=== PATIENT | male | born 1950 | race Caucasian/White ===

== ENCOUNTER 2020-04-30 19:50 | Emergency (ER) | payer OTHER ==
[2020-04-30] MEDS ORDERED: methylPREDNISolone Sodium Succinate 125 MG/2 ML SDV IVPUSH ONE (20:09)
[2020-04-30] MEDS ORDERED: diphenhydrAMINE 50 MG/ML SDV IVPUSH ONE (20:09)
[2020-04-30] MEDS ORDERED: EPINEPHrine 1 MG/ML SDV SUBCUT ONE (20:09)
--- NOTE | 2020-04-30 20:12 | EDM.PDOC ---
ED HPI GENERAL MEDICAL PROBLEM - General Chief Complaint: Allergic Reaction Stated Complaint: WASP STING Time Seen by Provider: 04/30/20 19:50 Source of Information: Reports: Patient, Family History Limitations: Reports: No Limitations - History of Present Illness INITIAL COMMENTS - FREE TEXT/NARRATIVE: 70-year-old male arrives in acute discomfort after a wasp sting on his left face 20 minutes before arrival. Within 10 to 20 minutes he developed widespread rash, redness, shortness of breath, chest pressure, and general malaise. He has not had past reactions to stings. No nausea or vomiting, he is acutely diaphoretic and weak. Onset: Sudden Duration: Minutes: (Stung 20 minutes ago, symptoms were fairly rapid onset) Associated Symptoms: Reports: Chest Pain, Diaphoresis, Malaise, Rash (Widespread blanching hive-like rash on his chest abdomen and extremities), Weakness. Denies: Confusion, Fever/Chills, Headaches, Nausea/Vomiting, Shortness of Breath chest pain Pain Score (Numeric/FACES): 8 - Related Data Allergies Allergy/AdvReac Type Severity Reaction Status Date / Time No Known Allergies Allergy Verified 04/30/20 20:01 Home Meds: Home Meds Aspirin 325 mg PO DAILY 04/30/20 [History] Cholecalciferol (Vitamin D3) [Vitamin D3] 1,000 unit PO BID 04/30/20 [History] Cyanocobalamin (Vitamin B-12) [B-12] 1,000 mcg PO DAILY 04/30/20 [History] Finasteride [Proscar] 5 mg PO DAILY 04/30/20 [History] Fish Oil/Baker-3 Fatty Acids [Fish Oil 1,000 MG] 1 cap PO BID 04/30/20 [History] Simvastatin [Zocor] 20 mg PO BEDTIME 04/30/20 [History] amLODIPine Besylate [Amlodipine Besylate] 2.5 mg PO DAILY 04/30/20 [History] atenoloL [Atenolol] 25 mg PO DAILY 04/30/20 [History] lisinopriL [Lisinopril] 5 mg PO DAILY 04/30/20 [History] ED ROS ALLERGIC REACTION - Review of Systems Review Of Systems: See Below Constitutional: Reports: Malaise. Denies: Fever, Chills HEENT: Reports: Other (Significant periorbital edema and facial edema, redness). Denies: Vision Change Respiratory: Denies: Wheezing Cardiovascular: Reports: Chest Pain (Pressure in his substernal chest) GI/Abdominal: Denies: Abdominal Pain, Nausea, Vomiting Musculoskeletal: Denies: Neck Pain, Back Pain Skin: Reports: Rash, Erythema, Urticaria Neurological: Reports: Dizziness, Weakness. Denies: Trouble Speaking, Difficulty Walking Psychiatric: Reports: No Symptoms ED EXAM GENERAL NO PERIP PULSE - Physical Exam Exam: See Below Exam Limited By: No Limitations General Appearance: Alert, Moderate Distress (Patient is acutely stressed with a systemic reaction to a wasp sting, and appears to be entering into an cristhian phylactic state) Eye Exam: Bilateral Eye: EOMI, Periorbital Changes (Patient is periorbital edema of his eyes and face), Other (Conjunctival erythema) Throat/Mouth: Other (No significant mucosal or pharyngeal airway swelling or edema) Head: Atraumatic Neck: Supple, Non-Tender Respiratory/Chest: No Respiratory Distress, Lungs Clear Cardiovascular: Regular Rate, Rhythm, Extra Beats GI/Abdominal: Soft, Non-Tender Extremities: No: Pedal Edema Neurological: Alert, Oriented Psychiatric: Anxious Skin Exam: Diaphoretic, Rash (Widespread blanching hive-like urticarial rash) Course - Vital Signs Last Recorded V/S: Last Vital Signs Temp 97.0 F 04/30/20 20:55 Pulse 82 04/30/20 20:55 Resp 15 04/30/20 20:55 BP 147/74 H 04/30/20 20:55 Pulse Ox 96 04/30/20 20:55 - Orders/Labs/Meds Orders: Active Orders 24 hr Category Date Time Status EKG Documentation Completion [RC] ASDIRECTED Care 04/30/20 20:10 Active RT Aerosol Therapy [RC] ASDIRECTED Care 04/30/20 20:21 Active Chest 1V Frontal [CR] Stat Exams 04/30/20 20:09 Taken EKG 12 Lead [EK] Stat Ther 04/30/20 20:09 Ordered Meds: Medications Discontinued Medications Generic Name Dose Route Start Last Admin Trade Name Freq PRN Reason Stop Dose Admin Albuterol/Ipratropium 3 ml 04/30/20 20:21 04/30/20 20:34 Duoneb 3.0-0.5 Mg/3 Ml NEB 04/30/20 20:22 3 ml ONETIME ONE Administration Diphenhydramine HCl 50 mg 04/30/20 20:09 04/30/20 20:40 Benadryl IVPUSH 04/30/20 20:10 50 mg ONETIME ONE Administration Diphtheria/Tetanus/Acell Pertussis 0.5 ml 04/30/20 20:29 04/30/20 20:39 Adacel IM 04/30/20 20:30 Not Given .ONCE ONE Epinephrine HCl 0.4 mg 04/30/20 20:09 04/30/20 20:39 Adrenalin SUBCUT 04/30/20 20:10 0.4 mg ONETIME ONE Administration Sodium Chloride 1,000 mls @ 1,000 mls/hr 04/30/20 20:15 04/30/20 20:33 Normal Saline IV 1,000 mls/hr ASDIRECTED DIMITRI Administration Methylprednisolone Sodium Succinate 125 mg 04/30/20 20:09 04/30/20 20:42 Solu-Medrol IVPUSH 04/30/20 20:10 125 mg ONETIME ONE Administration - Re-Assessments/Exams Free Text/Narrative Re-Assessment/Exam: 04/30/20 20:28 An IV was urgently started and the patient was given 0.4 mg of subcutaneous epinephrine. When the IV was placed he was given 50 mg of IV Benadryl, 125 mg of Solu-Medrol, and 1 L of normal saline. An EKG was done which showed no acute findings. Within 15 minutes of the medications he was starting to feel better but still had a widespread rash and some mild chest pressure. O2 saturations were only in the high 80s on room air so oxygen supplementation was provided, and he was also given a DuoNeb. 04/30/20 21:17 DuoNeb gave him good relief of the chest pressure, O2 saturations improved and he felt overall better. Over the course of the next 45 minutes he continued to improve and stabilize. 04/30/20 22:13 After 2-1/2 hours of monitoring after medications, the patient will be discharged on oral Benadryl. He feels near back to baseline. He was also given a prescription for an EpiPen to fill tomorrow. Departure - Departure Time of Disposition: 22:14 Disposition: Home, Self-Care 01 Clinical Impression: Allergic reaction to bee sting - Discharge Information Instructions: Bee, Wasp, or Hornet Sting, Adult Referrals: Naldo Park MD [Primary Care Provider] - Forms: ED Department Discharge Care Plan Goals: Repeat Benadryl 50 mg every 4-6 hours as needed for persistent rash or itching, return anytime if worsening or concerns. Fill EpiPen and carry with you in case it is necessary after another bee sting. Sepsis Event Note (ED) - Evaluation Sepsis Screening Result: No Definite Risk - Focused Exam Vital Signs: Vital Signs Temp Pulse Resp BP Pulse Ox 04/30/20 20:55 97.0 F 82 15 147/74 H 96 04/30/20 20:41 79 12 152/73 H 95 04/30/20 20:06 96.6 F L 93 17 84/51 L 94 L 04/30/20 20:05 85 18 123/70 91 L 04/30/20 19:52 96.6 F L 87 25 H 150/72 H 91 L - My Orders Last 24 Hours: My Active Orders 04/30/20 20:09 Chest 1V Frontal [CR] Stat EKG 12 Lead [EK] Stat 04/30/20 20:10 EKG Documentation Completion [RC] ASDIRECTED 04/30/20 20:21 RT Aerosol Therapy [RC] ASDIRECTED - Assessment/Plan Last 24 Hours: My Active Orders 04/30/20 20:09 Chest 1V Frontal [CR] Stat EKG 12 Lead [EK] Stat 04/30/20 20:10 EKG Documentation Completion [RC] ASDIRECTED 04/30/20 20:21 RT Aerosol Therapy [RC] ASDIRECTED
[2020-04-30] MEDS ORDERED: Sodium Chloride 0.9% 1,000 ML IV SCH (20:15)
[2020-04-30] MEDS ORDERED: Albuterol/Ipratropium 3.0-0.5 MG/3 ML Neb Soln NEB ONE (20:21)
[2020-04-30] MEDS ORDERED: Diphtheria,Pertussis(Acell),Tetanus Vaccine 0.5 ML SDV IM ONE (20:29)
--- NOTE | 2020-05-04 09:13 | CR ---
CHEST: Portable 04/30/2020 at 0804 CLINICAL HISTORY:Reaction to bee sting COMPARISON:None FINDINGS: Some mild generalized prominence of interstitial markings. This may be chronic. Pulmonary vascularity are normal. There are atherosclerotic changes in the aorta.. There are no effusions. Impression: Mild generalized prominence in interstitial markings. This may be chronic.
== END 2020-04-30 22:39 | disposition home or self-care (01) ==
LOC: JP.ED 19:50
DX: T63.441A Toxic effect of venom of bees, accidental (unintentional), initial encounter (principal); Z79.82 Long term (current) use of aspirin; Z79.899 Other long term (current) drug therapy
CPT/HCPCS: 71045; 93005; 93010; 94640; 96361; 96372; 96374; 96375; 99283; 99284; J0171; J1200; J2930; J7030; J7620-GY

== ENCOUNTER 2023-03-22 20:03 | Emergency (ER) | payer OTHER ==
[2023-03-22] MEDS ORDERED: Oxymetazoline 0.05% Nasal Spray 30 ML Bottle NAS STA (21:06)
[2023-03-22] MEDS ORDERED: Tranexamic Acid 1,000 MG/10 ML Vial TOP ONE (21:16)
== END 2023-03-22 21:58 | disposition home or self-care (01) ==
LOC: JP.ED 20:03
DX: R04.0 Epistaxis (principal); I10 Essential (primary) hypertension; J44.9 Chronic obstructive pulmonary disease, unspecified; F17.210 Nicotine dependence, cigarettes, uncomplicated; E78.00 Pure hypercholesterolemia, unspecified; Z79.01 Long term (current) use of anticoagulants; Z79.82 Long term (current) use of aspirin; Z79.899 Other long term (current) drug therapy
CPT/HCPCS: 30903; 99283; A9270-GY

== ENCOUNTER 2023-03-23 10:08 | Emergency (ER) | payer OTHER ==
[2023-03-23] MEDS ORDERED: Oxymetazoline 0.05% Nasal Spray 30 ML Bottle NAS ONE (10:18)
[2023-03-23] MEDS ORDERED: Silver Nitrate Applicator Each TOP ONE (10:19)
== END 2023-03-23 11:20 | disposition home or self-care (01) ==
LOC: JP.ED 10:08
DX: R04.0 Epistaxis (principal); E78.00 Pure hypercholesterolemia, unspecified; I10 Essential (primary) hypertension; J44.9 Chronic obstructive pulmonary disease, unspecified; M19.90 Unspecified osteoarthritis, unspecified site; Z86.73 Personal history of transient ischemic attack (TIA), and cerebral infarction without residual deficits; Z79.82 Long term (current) use of aspirin; Z79.01 Long term (current) use of anticoagulants; Z79.899 Other long term (current) drug therapy
CPT/HCPCS: 99283

== ENCOUNTER 2023-03-23 18:07 | Emergency (ER) | payer OTHER ==
[2023-03-23] MEDS ORDERED: Bacitracin Oint 1 GM U/D Packet TOP ONE (20:11)
[2023-03-23] MEDS ORDERED: Cetirizine 10 MG Tab PO ONE (20:40)
== END 2023-03-23 21:39 | disposition home or self-care (01) ==
LOC: JP.ED 18:07
DX: R04.0 Epistaxis (principal); J30.1 Allergic rhinitis due to pollen; J30.2 Other seasonal allergic rhinitis; E78.00 Pure hypercholesterolemia, unspecified; I10 Essential (primary) hypertension; J44.9 Chronic obstructive pulmonary disease, unspecified; M19.90 Unspecified osteoarthritis, unspecified site; F17.210 Nicotine dependence, cigarettes, uncomplicated; Z79.01 Long term (current) use of anticoagulants; Z79.82 Long term (current) use of aspirin; Z79.899 Other long term (current) drug therapy
CPT/HCPCS: 99283; A9270

== ENCOUNTER 2025-05-14 13:04 | Emergency (ER) | payer OTHER ==
[2025-05-14 13:40] LABS: BASOPHILS ABSOLUTE AUTO 0.04 K/uL (0.00-0.10); BASOPHILS PERCENT AUTO 0.5 % (0.1-1.3); EOSINOPHILS ABSOLUTE AUTO 0.37 K/uL (0.00-0.40); EOSINOPHILS PERCENT AUTO 4.5 % (0.0-5.4); IMMATURE GRAN ABSOLUTE AUTO 0.03 K/uL (0.00-0.23); IMMATURE GRAN PERCENT AUTO 0.4 % (0.0-0.7); LYMPHOCYTES ABSOLUTE AUTO 3.09 K/uL (0.8-3.3); LYMPHOCYTES PERCENT AUTO 37.3 % (11.4-47.7); MONOCYTES ABSOLUTE AUTO 0.72 K/uL (0.20-0.90); MONOCYTES PERCENT AUTO 8.7 % (3.3-12.6); NEUTROPHILS ABSOLUTE AUTO 4.03 K/uL (1.0-7.6); NEUTROPHILS PERCENT AUTO 48.6 % (40.0-78.1); PLATELET COUNT,PLT 237 K/uL (130-375); RED BLOOD CELL COUNT 3.94 M/uL (4.14-5.76); WHITE BLOOD CELL COUNT,WBC 8.3 K/uL (3.2-11.0)
[2025-05-14] MEDS: Sodium Chloride 0.9% 10 ML Syringe FLUSH PRN (13:41)
[2025-05-14 14:02] LABS: A/G RATIO 0.9 (1.2-2.2); ALANINE AMINOTRANSFERASE,ALT 34 U/L (12-78); ASPARTATE AMNIOTRANSFERASE,AST 32 U/L (15-37); BILIRUBIN TOTAL 1.3 mg/dL (0.2-1.0); BLOOD UREA NITROGEN,BUN 61 mg/dL (7-18); CARBON DIOXIDE,CO2 21 mmol/L (21-32); CHLORIDE,CL 105 mmol/L (100-108); CREATININE 1.9 mg/dL (0.8-1.3); EST CRCL DRUG DOSING (CG) 32.37 mL/min; ESTIMATED GFR 37 mL/min (>60); GLUCOSE RANDOM 190 mg/dL (74-106); PROTEIN TOTAL,TP 8.0 g/dL (6.4-8.2); SODIUM,NA 134 mmol/L (140-148)
[2025-05-14 14:05] LABS: POTASSIUM,K 6.4 mmol/L (3.6-5.2)
[2025-05-14] MEDS ORDERED: 50% Dextrose in Water 50 ML Syringe IVPUSH PRN (14:13)
[2025-05-14] MEDS: Albuterol 0.083% 2.5 MG/3 ML Neb Soln NEB ONE ×2 (14:16)
[2025-05-14] MEDS: 50% Dextrose in Water 50 ML Syringe IVPUSH ONE (14:32)
[2025-05-14] MEDS: Calcium Gluconate 10% 1 GM/10 ML SDV IVPUSH ONE (14:32)
[2025-05-14] MEDS: Insulin Regular, Human 100 Units/ML 10 ML Vial SUBCUT ONE (14:33)
[2025-05-14 16:59] LABS: BLOOD UREA NITROGEN,BUN 56.0 mg/dL (7-18); CARBON DIOXIDE,CO2 22.0 mmol/L (21-32); CHLORIDE,CL 106.0 mmol/L (100-108); CREATININE 1.8 mg/dL (0.8-1.3); EST CRCL DRUG DOSING (CG) 34.17 mL/min; ESTIMATED GFR 39.0 mL/min (>60); GLUCOSE RANDOM 159.0 mg/dL (74-106); POTASSIUM,K 5.9 mmol/L (3.6-5.2); SODIUM,NA 135.0 mmol/L (140-148)
== END 2025-05-14 17:40 | disposition home or self-care (01) ==
LOC: JP.ED 13:04
DX: E87.5 Hyperkalemia (principal); N17.9 Acute kidney failure, unspecified; E78.00 Pure hypercholesterolemia, unspecified; I10 Essential (primary) hypertension; F17.210 Nicotine dependence, cigarettes, uncomplicated; J44.9 Chronic obstructive pulmonary disease, unspecified; Z79.82 Long term (current) use of aspirin; Z79.899 Other long term (current) drug therapy; Z86.73 Personal history of transient ischemic attack (TIA), and cerebral infarction without residual deficits
CPT/HCPCS: 36415; 80048; 80053; 83735; 85025; 93005; 94640; 96361; 96374; 96375; 99285; A9270; J0612; J7030; J7613

== ENCOUNTER 2025-05-15 22:06 | Emergency (ER) | payer OTHER ==
[2025-05-15 23:22] LABS: BLOOD UREA NITROGEN,BUN 45.0 mg/dL (7-18); CARBON DIOXIDE,CO2 22.0 mmol/L (21-32); CHLORIDE,CL 105.0 mmol/L (100-108); CREATININE 1.7 mg/dL (0.8-1.3); EST CRCL DRUG DOSING (CG) 27.37 mL/min; ESTIMATED GFR 42.0 mL/min (>60); GLUCOSE RANDOM 160.0 mg/dL (74-106); POTASSIUM,K 5.3 mmol/L (3.6-5.2); SODIUM,NA 136.0 mmol/L (140-148)
== END 2025-05-15 23:40 | disposition home or self-care (01) ==
LOC: JP.ED 22:06
DX: E87.5 Hyperkalemia (principal); E78.00 Pure hypercholesterolemia, unspecified; I10 Essential (primary) hypertension; F17.200 Nicotine dependence, unspecified, uncomplicated; Z79.82 Long term (current) use of aspirin; Z79.899 Other long term (current) drug therapy
CPT/HCPCS: 36415; 80048; 99284